=== PATIENT | male | born 1945 | race Caucasian/White ===

== ENCOUNTER 2023-12-14 11:14 | Emergency (ER) | payer MEDICARE, OTHER ==
[2023-12-14] MEDS: fentaNYL 100 MCG/2 ML SDV IVPUSH ONE ×2 (12:16→14:07)
[2023-12-14] MEDS: Ondansetron 4 MG/2 ML SDV IVPUSH ONE (12:16)
[2023-12-14 12:21] LABS: BASOPHILS PERCENT AUTO 0.2 % (0.1-1.3); EOSINOPHILS ABSOLUTE AUTO 0.11 K/uL (0.00-0.40); EOSINOPHILS PERCENT AUTO 1.4 % (0.0-5.4); HEMOGLOBIN 15.9 g/dL (12.9-16.9); IMMATURE GRAN ABSOLUTE AUTO 0.06 K/uL (0.00-0.23); IMMATURE GRAN PERCENT AUTO 0.7 % (0.0-0.7); LYMPHOCYTES ABSOLUTE AUTO 1.29 K/uL (0.8-3.3); MEAN CORPUSCULAR HGB CONC 36.1 g/dL (31.6-35.5); MONOCYTES ABSOLUTE AUTO 0.67 K/uL (0.20-0.90); MONOCYTES PERCENT AUTO 8.3 % (3.3-12.6); NEUTROPHILS ABSOLUTE AUTO 5.89 K/uL (1.0-7.6); NEUTROPHILS PERCENT AUTO 73.4 % (40.0-78.1); PLATELET COUNT,PLT 111 K/uL (130-375); RED BLOOD CELL COUNT 4.68 M/uL (4.14-5.76)
[2023-12-14 12:29] LABS: BASOPHILS ABSOLUTE AUTO 0.02 K/uL (0.00-0.10)
[2023-12-14] MEDS: Sodium Chloride 0.9% 1,000 ML IV ONE (12:29)
[2023-12-14 12:46] LABS: LACTIC ACID 1.9 mmol/L (0.4-2.0)
[2023-12-14 12:58] LABS: A/G RATIO 1.1 (1.2-2.2); ALANINE AMINOTRANSFERASE,ALT 28 U/L (12-78); ALBUMIN 3.9 g/dL (3.4-5.0); ALKALINE PHOSPHATASE 82 U/L (46-116); ASPARTATE AMNIOTRANSFERASE,AST 28 U/L (15-37); BLOOD UREA NITROGEN,BUN 26 mg/dL (7-18); C-REACTIVE PROTEIN 0.61 mg/dL (<0.50); CALCIUM 8.6 mg/dL (8.5-10.1); CARBON DIOXIDE,CO2 24 mmol/L (21-32); CHLORIDE,CL 103 mmol/L (100-108); CREATININE 1.7 mg/dL (0.8-1.3); EST CRCL DRUG DOSING (CG) 39.17 mL/min; ESTIMATED GFR 40 mL/min (>60); GLUCOSE RANDOM 231 mg/dL (74-106); POTASSIUM,K 5.1 mmol/L (3.6-5.2); PROTEIN TOTAL,TP 7.6 g/dL (6.4-8.2); SODIUM,NA 139 mmol/L (140-148)
[2023-12-14 12:59] LABS: ANION GAP 17.1 mmol/L (5.0-14.0)
[2023-12-14] MEDS: Sodium Chloride 0.9% 100 ML IV ONE (14:23)
[2023-12-14] MEDS: Sodium Chloride 0.9% 10 ML Syringe FLUSH ONE (14:23)
[2023-12-14] MEDS: Iopamidol 612 MG/ML 100 ML Bottle IV ONE (14:23)
[2023-12-14 14:45] LABS: APPEARANCE,URINE SLIGHTLY CLOUDY (CLEAR); BILIRUBIN,URINE NEGATIVE (NEGATIVE); COLOR,URINE YELLOW (YELLOW); GLUCOSE,URINE 250 mg/dL (NEGATIVE); KETONES,URINE TRACE mg/dL (NEGATIVE); LEUKOCYTE ESTERASE,URINE NEGATIVE (NEGATIVE); NITRITE,URINE NEGATIVE (NEGATIVE); OCCULT BLOOD,URINE LARGE (NEGATIVE); PH,URINE 5.5 (5.0-8.0); PROTEIN,URINE 30 mg/dL (NEGATIVE); UROBILINOGEN,URINE 0.2 EU/dL (0.2-1.0)
[2023-12-14 14:50] LABS: RBC,URINE PACKED (0-5); WBC,URINE 0-5 (0-5)
[2023-12-14 14:51] LABS: AMORPHOUS SEDIMENT,URINE FEW; EPITHELIAL CELLS,URINE RARE; MUCUS,URINE NOT SEEN
[2023-12-14] MEDS: Ketorolac 10 MG Tab PO ONE (15:34)
[2023-12-14] MEDS: Tamsulosin 0.4 MG Cap.ER PO ONE (15:34)
== END 2023-12-14 15:53 | disposition home or self-care (01) ==
LOC: JP.ED 11:14
DX: N13.2 Hydronephrosis with renal and ureteral calculous obstruction (principal); Z88.0 Allergy status to penicillin; Z79.899 Other long term (current) drug therapy; Z79.01 Long term (current) use of anticoagulants
CPT/HCPCS: 36415; 74177; 80053; 81001; 83605; 84145; 85025; 86140; 87040; 96361; 96374; 96375; 96376; 99284; A9270; J2405; J3010; J3490; J7030; Q9967